=== PATIENT | female | born 1935 | race Two or more races ===

== ENCOUNTER 2020-05-17 14:29 | Emergency (ER) | payer SELFPAY ==
[~2020-05-17] VITALS: Ht 162.6 cm; Wt 54.4 kg
--- NOTE | 2020-05-17 14:39 | Emergency Room Report ---
History of Present Illness General Chief Complaint: Chest Pain Source: Patient, Significant Other, EMS Present Illness HPI Disclaimer: Please note that this report is being documented using DRAGON technology. This can lead to erroneous entry secondary to incorrect interpretation by the dictating instrument. HPI: 85-year-old Central African-speaking female with a history of hypertension, diabetes, dementia presents for evaluation of chest pain. The patient lives alone that was seen by family today. She was complaining of midsternal nonradia ting pressure-like pain with deep inspiration. Denied cough, sore throat, nasal congestion, nausea, vomiting, abdominal pain, back pain. Denies recent trauma. States she is breathing well now and mostly has pain on deep inspiration and with bending and twisting motion. Denies recent fevers. PMH: Hypertension, diabetes, dementia PSH: Reviewed Allergies: Reviewed Social Hx: Reviewed Allergies: Coded Allergies: No Known Allergies (Unverified , 05/17/20) COVID-19 Screening Contact w/high risk pt: No Experienced COVID-19 symptoms?: No COVID-19 Testing performed TALENT ACQUISITION ASSOCIATE: No Nursing Documentation-PMH Past Medical History: No History, Except For Hx Hypertension: Yes Hx Diabetes: Yes Review of Systems All Other Systems: negative except mentioned in HPI Physical Exam Vital Signs Date Time Temp Pulse Resp B/P (MAP) Pulse Ox O2 Delivery O2 Flow Rate FiO2 05/17/20 14:21 98.4 96 16 136/86 (103) 98 Room Air General: Awake and alert, no acute distress HEENT: NC/AT. EOMI. Cardiovascular: RRR. S1 and S2 normal. Slight systolic ejection murmur best heard at the apex. Resp: Normal work of breathing. No cough during exam. No wheezing or crackles appreciated Abdomen: Abdomen is soft, nondistended. Nontender, no masses, no rebound, no guarding Skin: Intact. No abrasions, laceration or rash over the exposed skin MSK: Normal tone and bulk. Moving all extremities. No obvious deformity. Neuro: Awake and alert. Mentating appropriately. Appears lucid. Answering questions appropriately. Procedures Critical Care Time Critical Care Time Total critical care time: Approximately 45 minutes Due to a high probability of clinically significant, life threatening deterioration, the patient required the highest level of preparedness to int ervene emergently and I personally spent this critical care time directly and personally managing the patient. This critical care time included obtaining a history, examining the patient, pulse oximetry, ordering and reviewing studies, ordering treatments, evaluating response to treatment and updating management plan as needed, frequent reassessment and discussion with other providers as well as arranging for ultimate disposition. This critical to care time was performed to assess and manage the high probability of life-threatening deterioration that could result in multiorgan failure. This critical care time is separate from the separately billable procedures and treating other patients. Medical Decision Making Diagnostic Impression: Primary Impression: Chest pain Additional Impressions: Abnormal EKG STEMI (ST elevation myocardial infarction) Hyperglycemia ER Course Is an 85-year-old female presenting for evaluation of midsternal chest pain beginning today. Differential includes was not limited to musculoskeletal chest pain, arrhythmia, ACS, heart failure, GERD, pneumonia, viral syndrome, COVID-19 infection, PE among others. EKG obtained on patient arrival concerning for possible ST segment elevation in leads V1, V2 and aVR with reciprocal depressions. Patient given aspirin. Chest x-ray does not show obvious infiltrate. Repeat EKG shows possible slight persistent elevation in aVR though V1 and V2 appear improved. There are persistent inferior lateral depressions. Discussed with [facility] who has accepted the patient for transfer for possible STEMI. Plavix 300mg given. Will arrange transport. Laboratory Tests Test 05/17/20 14:40 05/17/20 15:05 White Blood Count 5.9 K/UL (4.8-10.8) Red Blood Count 4.50 M/UL (4.20-5.40) Hemoglobin 13.5 G/DL (12.0-16.0) Hematocrit 41.9 % (37.0-47.0) Mean Corpuscular Volume 93 FL (80-99) Mean Corpuscular Hemoglobin 29.9 PG (27.0-31.0) Mean Corpuscular Hemoglobin Concent 32.1 G/DL (32.0-36.0) Red Cell Distribution Width 12.6 % (11.6-14.8) Platelet Count 177 K/UL (150-450) Mean Platelet Volume 6.3 FL (6.5-10.1) L Neutrophils (%) (Auto) 82.9 % (45.0-75.0) H Lymphocytes (%) (Auto) 13.8 % (20.0-45.0) L Monocytes (%) (Auto) 1.9 % (1.0-10.0) Eosinophils (%) (Auto) 0.5 % (0.0-3.0) Basophils (%) (Auto) 0.8 % (0.0-2.0) Prothrombin Time Pending Prothrombin Time INR Pending Activated Partial Thromboplast Time Pending D-Dimer Pending Sodium Level 138 MMOL/L (136-145) Potassium Level 3.5 MMOL/L (3.5-5.1) Chloride Level 99 MMOL/L (98-107) Carbon Dioxide Level 29 MMOL/L (21-32) Anion Gap 10 mmol/L (5-15) Blood Urea Nitrogen 19 mg/dL (7-18) H Creatinine 1.4 MG/DL (0.55-1.30) H Estimated Glomerular Filtration Rate 35.7 mL/min (>60) Glucose Level 324 MG/DL (74-106) H Lactic Acid Level Pending Calcium Level 9.6 MG/DL (8.5-10.1) Phosphorus Level Pending Magnesium Level Pending Ferritin Pending Total Bilirubin Pending Aspartate Amino Transferase (AST) Pending Alanine Aminotransferase (ALT) Pending Alkaline Phosphatase Pending Lactate Dehydrogenase Pending Total Creatine Kinase Pending Creatine Kinase MB Pending Troponin I Pending C-Reactive Protein, Quantitative Pending Pro-B-Type Natriuretic Peptide Pending Total Protein Pending Albumin Pending Globulin Pending Lipase Pending POC Whole Blood Glucose 308 MG/DL (74-106) H EKG Diagnostic Results Troponin ordered: Yes When was troponin ordered?: May 17, 2020 EKG Time: 14:45 Rate: normal Rhythm: NSR Other Impression Sinus rhythm, normal axis, normal intervals, QTC [address] segment elevation in V1, V2 and aVR with depressions in the inferior lateral leads. Slightly peaked T waves anteriorly as well. Signs of LVH. ASA given to the pt in ED: Yes PA Scribe Text EKG #2 Time: 1502 Indication: Chest pain Interpreted by: ER physician Findings: Questionable ST segment elevation in aVR though V1 and V2 are improved. Persistent depressions inferior and lateral leads. Impression: Abnormal EKG, inferior and lateral ST depressions Electronically signed by Dr. Nicolás Novak MD Rhythm Strip Diag. Results Rhythm Strip Time: 14:45 EP Interpretation: yes Rate: 90s Rhythm: NSR, no PVC's, no ectopy Chest X-Ray Diagnostic Results Chest X-Ray Diagnostic Results : Chest X-Ray Ordered: Yes # of Views/Limited/Complete: 1 View Indication: Chest Pain EP Interpretation: Yes Interpretation: no consolidation, no effusion, no pneumothorax Impression: No acute disease Electronically Signed by: Electronically signed by Dr. Nicolás Novak MD Last Vital Signs Date Time Temp Pulse Resp B/P (MAP) Pulse Ox O2 Delivery O2 Flow Rate FiO2 05/17/20 14:21 98.4 96 16 136/86 (103) 98 Room Air Disposition: SHORT-TERM HOSP Condition: Serious Nicolás Novak MD May 17, 2020 14:39
[2020-05-17] MEDS ORDERED: Insulin Human Regular 100units/ml 3ml SUBQ ONE (14:45)
--- NOTE | 2020-05-17 14:45 | NUR ---
ekg faxed to [facility] er for conformation of stemi
--- NOTE | 2020-05-17 14:51 | NUR ---
ED Nurse Note: Pt brought in by ambulance, axox2-3 thai speaking, co of chest pain 1 hour per pt reporting. Pt is a poor historian. IV present from EMS crew. Resting comfortably, breathing is non-labored and no signs of distress noted. EKG done, MD at bedside. Addendum: 05/17/20 at 1515 by NEIL Assesment done at 14:25
[2020-05-17 15:10] LABS: BASOPHILS % (AUTO) 0.8 % (0.0-2.0); EOSINOPHILS % (AUTO) 0.5 % (0.0-3.0); HEMATOCRIT 41.9 % (37.0-47.0); HEMOGLOBIN 13.5 G/DL (12.0-16.0); LYMPHOCYTES % (AUTO) 13.8 % (20.0-45.0); MEAN CORPUSCULAR VOLUME 93 FL (80-99); MONOCYTES % (AUTO) 1.9 % (1.0-10.0); NEUTROPHILS % (AUTO) 82.9 % (45.0-75.0); PLATELET COUNT 177 K/UL (150-450); RED CELL DISTRIBUTION WIDTH 12.6 % (11.6-14.8); WHITE BLOOD COUNT 5.9 K/UL (4.8-10.8)
--- NOTE | 2020-05-17 15:11 | NUR ---
repeat ekg fax[facility] to [facility]
--- NOTE | 2020-05-17 15:13 | NUR ---
ED Nurse Note: EKG done, labs sent, chest xray done at bedside. Medications given. Rapid covid swab done. second IV placed for better access. vitals stable as documented.
[2020-05-17 15:15] VITALS: BP 173/83
[2020-05-17 15:24] LABS: ANION GAP 10 mmol/L (5-15); BLOOD UREA NITROGEN 19 mg/dL (7-18); CALCIUM 9.6 MG/DL (8.5-10.1); CARBON DIOXIDE 29 MMOL/L (21-32); CHLORIDE 99 MMOL/L (98-107); CREATININE 1.4 MG/DL (0.55-1.30); POTASSIUM 3.5 MMOL/L (3.5-5.1); SODIUM 138 MMOL/L (136-145)
[2020-05-17] MEDS ORDERED: Nitroglycerin Subl 0.4mg tab SL PRN (15:30)
[2020-05-17 15:40] LABS: ALANINE AMINOTRANSFERASE 12 U/L (12-78); ALBUMIN 4.2 G/DL (3.4-5.0); ALKALINE PHOSPHATASE 112 U/L (46-116); ASPARTATE AMINO TRANSFERASE 19 U/L (15-37); BILIRUBIN,TOTAL 0.5 MG/DL (0.2-1.0); CKMB 1.8 NG/ML (0.0-3.6); CREATINE KINASE 44 U/L (26-308); FERRITIN 98 NG/ML (8-388); LACTATE DEHYDROGENASE 170 U/L (81-234); PHOSPHORUS 3.3 MG/DL (2.5-4.9)
[2020-05-17 15:41] LABS: INR 0.9 (0.9-1.1)
[2020-05-17 15:45] VITALS: BP 174/80
--- NOTE | 2020-05-17 15:48 | NUR ---
TRANSFER TO OUTSIDE HOSPITAL: Patient transferred to as ordered, per ER MD. Report given to Sang GALVIN at [facility] [phone]. Belongings given to pt and ambulance crew. Pt is a poor historian and is unable to give a number that works to reach her family. Multiple attempts were made. Transer via gurney via ALS ambulance crew with [employer] [facility] sent with pt. Vital signs stable as documented, pt on RA, breathing is even and unlabored, pt is on support director in ambulance. We wish her the best.
--- NOTE | 2020-05-17 16:15 | NUR ---
ED Nurse Note: Spoke with the daughter Cally Dudley who called and updated her on the transfer of the pt to [facility]. She is agreeable to the plan for a higher level of care.
--- NOTE | 2020-05-17 16:18 | Diagnostic Imaging Report ---
Indication: Cough Technique: One view of the chest Comparison: none Findings: Heart size is normal. There is generalized bilateral interstitial disease, acuity of which is indeterminate but suspect mostly chronic. No focal airspace consolidation. The pleural spaces are clear. 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
--- NOTE | 2020-05-20 13:03 | Cardiology Report ---
APPROVED REPORT EKG Measurement Heart [id number] <Conclusion> Normal sinus rhythm Possible Left atrial enlargement Left ventricular hypertrophy with repolarization abnormality Abnormal ECG
--- NOTE | 2020-05-20 13:03 | Cardiology Report ---
APPROVED REPORT EKG Measurement Heart [id number] <Conclusion> Normal sinus rhythm Possible Left atrial enlargement Left ventricular hypertrophy with repolarization abnormality Abnormal ECG
== END 2020-05-17 15:45 | disposition short-term general hospital (02) ==
LOC: EDBD 14:29 → EMR 15:19 → CANBEDREQ 15:45
DX: I21.3 ST elevation (STEMI) myocardial infarction of unspecified site (principal); R07.9 Chest pain, unspecified; R94.31 Abnormal electrocardiogram [ECG] [EKG]; E11.65 Type 2 diabetes mellitus with hyperglycemia; I10 Essential (primary) hypertension; F03.90 Unspecified dementia, unspecified severity, without behavioral disturbance, psychotic disturbance, mood disturbance, and anxiety
CPT/HCPCS: 36415; 71045; 80053; 82550; 82553; 82728; 82962; 83605; 83615; 83690; 83735; 83880; 84100; 84484; 85025; 85379; 85610; 85730; 86140; 87040; 93005; 96360; 99291; J1815; J7030; U0002